=== PATIENT | male | born 1935 | race Caucasian/White ===

== ENCOUNTER 2019-02-01 15:46 | Inpatient (IN) ==
[2019-02-01 19:17] LABS: Basophils % 0.1 %; Eosinophils % 0.4 %; Hemoglobin 13.8 g/dL (12.9-16.9); Immature Granulocytes % 0.5 % (0-4); Lymphocytes # 0.3 K/mcL (0.6-4.6); Lymphocytes % 3.8 %; Mean Corpuscular HGB Conc 34.5 g/dL (31.6-35.5); Mean Corpuscular Hemoglobin 31.6 pg (28.0-33.3); Mean Corpuscular Volume 91.5 fL (83.0-100.0); Mean Platelet Volume 8.4 fL (9.4-12.4); Monocytes # 0.9 K/mcL (0.0-1.3); Monocytes % 12.1 %; Neutrophils # 6.4 K/mcL (1.6-8.9); Platelet Count 239 K/mcL (140-400); Red Blood Count 4.37 M/mcL (4.19-5.50); Red Cell Distribution Width 13.7 % (11.5-14.5); Segmented Neutrophils % 83.1 %; White Blood Count 7.7 K/mcL (4.3-11.1)
[2019-02-01 19:22] LABS: Prothrombin Time 11.2 Seconds (9.4-12.1)
[2019-02-01 19:57] LABS: Alanine Aminotransferase 20 Units/L (7-52); Albumin 3.8 g/dL (3.5-5.7); Albumin/Globulin Ratio 1.5 (1.1-2.2); Alkaline Phosphatase 54 Units/L (34-104); Aspartate Amino Transferase 23 Units/L (13-39); BUN/Creatinine Ratio 35 (6-26); Bilirubin,Total 0.6 mg/dL (0.3-1.0); Blood Urea Nitrogen 26 mg/dL (8-23); Calcium 9.1 mg/dL (8.6-10.3); Carbon Dioxide 30 mEq/L (23-29); Chloride 91 mEq/L (98-107); Globulin 2.5 g/dL (2.4-3.5); Glucose 122 mg/dL (70-105); Magnesium 2.1 mg/dL (1.6-2.6); Osmolality,Calculated 278 (280-300); Phosphorous 2.3 mg/dL (2.7-4.5); Potassium 4.5 mEq/L (3.5-5.1); Sodium 131 mEq/L (136-145); Total Protein 6.3 g/dL (6.4-8.9); eGFR For African Americans > 60 (> 60); eGFR For Non-African Americans > 60 (> 60)
[2019-02-01] MEDS ORDERED: Naloxone 0.4 MG/ML INJ IVP PRN (20:29)
[2019-02-01] MEDS ORDERED: 0.9 % Sodium Chloride 1,000 ML IVC SCH (20:30)
[2019-02-01] MEDS ORDERED: Cosyntropin 250 MCG/2 ML VIAL IVP ONE (20:40)
[2019-02-01] MEDS: *HR* Heparin 5,000 UNIT/ML VIAL SQ SCH (22:18)
[2019-02-01] MEDS: Gabapentin 300 MG CAPSULE PO SCH (22:19)
[2019-02-01] MEDS: Magic Mouthwash 10 ML UD Cup PO PRN (23:12)
[2019-02-01] MEDS: dexAMETHasone 4 MG TABLET PO SCH (23:24)
[2019-02-01 23:47] LABS: Troponin I 0.08 ng/mL (< 0.04)
[2019-02-01] MEDS ORDERED: Albuterol 2.5 MG/3 ML NEBULIZER IH PRN (23:50)
[2019-02-02] MEDS: Ipratropium/Albuterol Neb 3 ML IH SCH ×4 (00:13→22:13)
[2019-02-02 03:58] LABS: VBG HCO3 35 mEq/L (21-27); VBG PCO2 62 mmHg (41-51); VBG PH 7.36 pH Units (7.32-7.42); VBG PO2 54 mmHg (25-50)
[2019-02-02 04:13] LABS: BUN/Creatinine Ratio 31 (6-26); Blood Urea Nitrogen 22 mg/dL (8-23); C-Reactive Protein 37 mg/L (Less than 10); Calcium 8.7 mg/dL (8.6-10.3); Carbon Dioxide 33 mEq/L (23-29); Chloride 92 mEq/L (98-107); Chol/HDL Ratio 2.1 (0-4.9); Cholesterol 146 mg/dL (< 200); Glucose 120 mg/dL (70-105); HDL Cholesterol 71 mg/dL (40-59); LDL Cholesterol,Calculated 59 mg/dL (0-99); Osmolality,Calculated 277 (280-300); Potassium 4.1 mEq/L (3.5-5.1); Sodium 131 mEq/L (136-145); Triglycerides 80 mg/dL (< 150); eGFR For African Americans > 60 (> 60); eGFR For Non-African Americans > 60 (> 60)
[2019-02-02 05:05] LABS: Bilirubin,Urine Negative (Negative); Blood,Urine Large (Negative); Clarity,Urine Cloudy (Clear); Glucose,Urine (UA) Normal (Normal); Ketones,Urine Trace mg/dL (Negative); Leukocyte Esterase,Urine Moderate (Negative); Nitrite,Urine Positive (Negative); Protein,Urine 100 mg/dL (Neg-Trace); Specific Gravity,Urine 1.027 (1.010-1.025); Urobilinogen,Urine Normal (Normal)
[2019-02-02 05:07] LABS: Bacteria,Urine Many per hpf (None-Few); Hyaline Casts,Urine None Seen per lpf (None-Few); RBC,Urine TNTC per hpf (0-3); Squamous Epithelial Cell,Urine Many per lpf (None-Few); WBC,Urine 15-30 per hpf (0-3)
[2019-02-02 05:11] LABS: Color,Urine Amber (Yellow)
[2019-02-02 05:15] LABS: Sodium, Urine 33.8 mEq/L
[2019-02-02] MEDS: *HR* Heparin 5,000 UNIT/ML VIAL SQ SCH ×3 (05:49→21:33)
[2019-02-02] MEDS: Gabapentin 300 MG CAPSULE PO SCH ×3 (05:49→21:26)
[2019-02-02] MEDS: Magic Mouthwash 10 ML UD Cup PO PRN (05:50)
[2019-02-02] MEDS: dexAMETHasone 4 MG TABLET PO SCH ×2 (08:59→20:33)
[2019-02-02] MEDS: Lisinopril 20 MG TABLET PO SCH (08:59)
[2019-02-02] MEDS: cefTRIAXone 1,000 MG in Water for inj. (sterile) 10 ML IVP SCH (11:29)
[2019-02-02 11:43] LABS: Estimated Average Glucose 151 mg/dl
[2019-02-02] MEDS: Nystatin SUSP 5 ML UD.LIQ PO SCH ×3 (13:59→20:33)
[2019-02-02] MEDS: Tiotropium 18 MCG inhalation IH SCH (15:48)
[2019-02-02] MEDS: Sucralfate 1 GM TABLET PO SCH (16:52)
[2019-02-02 20:52] LABS: Hematocrit 42.4 % (37.5-50.1); Hemoglobin 14.2 g/dL (12.9-16.9)
[2019-02-03 05:28] LABS: Hematocrit 36.8 % (37.5-50.1); Hemoglobin 12.7 g/dL (12.9-16.9); Immature Granulocytes % 0.6 % (0-4); Lymphocytes # 0.2 K/mcL (0.6-4.6); Lymphocytes % 2.8 %; Mean Corpuscular HGB Conc 34.5 g/dL (31.6-35.5); Mean Corpuscular Hemoglobin 31.6 pg (28.0-33.3); Mean Corpuscular Volume 91.5 fL (83.0-100.0); Monocytes # 0.5 K/mcL (0.0-1.3); Monocytes % 8.3 %; Platelet Count 247 K/mcL (140-400); Red Blood Count 4.02 M/mcL (4.19-5.50); Red Cell Distribution Width 13.4 % (11.5-14.5); Segmented Neutrophils % 88.3 %; White Blood Count 6.4 K/mcL (4.3-11.1)
[2019-02-03] MEDS: Gabapentin 300 MG CAPSULE PO SCH ×3 (05:28→22:17)
[2019-02-03] MEDS: *HR* Heparin 5,000 UNIT/ML VIAL SQ SCH ×3 (05:28→22:17)
[2019-02-03 05:34] LABS: Neutrophils # 5.7 K/mcL (1.6-8.9)
[2019-02-03 05:44] LABS: BUN/Creatinine Ratio 40 (6-26); Blood Urea Nitrogen 22 mg/dL (8-23); Calcium 8.2 mg/dL (8.6-10.3); Carbon Dioxide 32 mEq/L (23-29); Chloride 95 mEq/L (98-107); Glucose 122 mg/dL (70-105); Osmolality,Calculated 279 (280-300); Potassium 4.2 mEq/L (3.5-5.1); Sodium 132 mEq/L (136-145); eGFR For African Americans > 60 (> 60); eGFR For Non-African Americans > 60 (> 60)
[2019-02-03 05:58] LABS: Platelet Estimate Normal (Normal)
[2019-02-03] MEDS ORDERED: NON-FORMULARY MEDICATION 1 EACH EACH (Umeclidinium Brm/Vilanterol Tr [Anoro Ellipta 62.5-2 IH SCH (09:00)
[2019-02-03] MEDS: cefTRIAXone 1,000 MG in Water for inj. (sterile) 10 ML IVP SCH (09:23)
[2019-02-03] MEDS: Nystatin SUSP 5 ML UD.LIQ PO SCH ×4 (09:23→22:17)
[2019-02-03] MEDS: Sucralfate 1 GM TABLET PO SCH ×2 (09:24→16:09)
[2019-02-03] MEDS: dexAMETHasone 4 MG TABLET PO SCH ×2 (09:24→22:17)
[2019-02-03] MEDS: Fluconazole 200 MG/100 ML 200 MG/100 ML BAG IVPB SCH (09:24)
[2019-02-03] MEDS: Lisinopril 20 MG TABLET PO SCH (10:27)
[2019-02-03] MEDS: Tiotropium 18 MCG inhalation IH SCH (16:06)
[2019-02-04] MEDS: *HR* Heparin 5,000 UNIT/ML VIAL SQ SCH ×2 (05:14→14:45)
[2019-02-04] MEDS: Gabapentin 300 MG CAPSULE PO SCH ×2 (05:14→14:45)
[2019-02-04 06:59] LABS: Hemoglobin 13.8 g/dL (12.9-16.9); Mean Corpuscular HGB Conc 32.9 g/dL (31.6-35.5); Mean Corpuscular Hemoglobin 31.2 pg (28.0-33.3); Mean Corpuscular Volume 94.8 fL (83.0-100.0); Mean Platelet Volume 8.8 fL (9.4-12.4); Platelet Count 294 K/mcL (140-400); Red Blood Count 4.43 M/mcL (4.19-5.50); Red Cell Distribution Width 13.4 % (11.5-14.5); White Blood Count 7.2 K/mcL (4.3-11.1)
[2019-02-04 07:10] LABS: BUN/Creatinine Ratio 42 (6-26); Blood Urea Nitrogen 30 mg/dL (8-23); Calcium 8.8 mg/dL (8.6-10.3); Carbon Dioxide 30 mEq/L (23-29); Chloride 93 mEq/L (98-107); Glucose 123 mg/dL (70-105); Osmolality,Calculated 280 (280-300); Potassium 5.1 mEq/L (3.5-5.1); Sodium 131 mEq/L (136-145); eGFR For African Americans > 60 (> 60); eGFR For Non-African Americans > 60 (> 60)
[2019-02-04] MEDS: Tiotropium 18 MCG inhalation IH SCH (07:26)
[2019-02-04] MEDS: Lisinopril 20 MG TABLET PO SCH (08:15)
[2019-02-04] MEDS: cefTRIAXone 1,000 MG in Water for inj. (sterile) 10 ML IVP SCH (08:15)
[2019-02-04] MEDS: Sucralfate 1 GM TABLET PO SCH (08:15)
[2019-02-04] MEDS: dexAMETHasone 4 MG TABLET PO SCH (08:15)
[2019-02-04] MEDS: Nystatin SUSP 5 ML UD.LIQ PO SCH ×2 (08:15→14:45)
[2019-02-04] MEDS: Fluconazole 200 MG/100 ML 200 MG/100 ML BAG IVPB SCH (08:16)
[2019-02-04 15:01] VITALS: BP 142/82
== END 2019-02-04 17:00 | DRG 368 ==
LOC: 2NENU → SUATTDRO 17:58
PROVIDERS: ADMIT Internal Medicine; ATTEND Internal Medicine